=== PATIENT | male | born 1960 | race Caucasian/White ===

== ENCOUNTER 2020-08-19 10:49 | Emergency (ER) | payer OTHER ==
[~2020-08-19] VITALS: Ht 172.7 cm; Wt 108.9 kg
[2020-08-19] MEDS: cloNIDine HCL 0.1 MG TAB PO ONE (11:00)
[2020-08-19 13:28] LABS: Urine Bacteria NONE SEEN /hpf (None Seen); Urine Blood 3+ /uL (Negative); Urine Budding Yeast FEW /hpf (None Seen); Urine Mucus FEW (None Seen); Urine Specific Gravity 1.021 (1.001-1.035); Urine WBC 117 /hpf (0 - 3)
[2020-08-19] MEDS: cefTRIAXone SOD 1,000 MG VL IM ONE (14:36)
[2020-08-19 14:48] VITALS: BP 181/115
== END 2020-08-19 15:28 | disposition home or self-care (01) ==
LOC: ER 10:49
DX: N39.0 Urinary tract infection, site not specified (principal); N21.0 Calculus in bladder; I10 Essential (primary) hypertension; E66.01 Morbid (severe) obesity due to excess calories; Z68.36 Body mass index [BMI] 36.0-36.9, adult
CPT/HCPCS: 74176; 81001; 96372; 99284; J0696

== ENCOUNTER 2021-01-20 18:44 | Emergency (ER) | payer MEDICAID, OTHER ==
[~2021-01-20] VITALS: Ht 172.7 cm; Wt 99.8 kg
[2021-01-20 18:55] VITALS: BP 101/68
== END 2021-01-21 00:52 | disposition left against medical advice (07) ==
LOC: ER 18:44
DX: R30.9 Painful micturition, unspecified (principal); Z53.21 Procedure and treatment not carried out due to patient leaving prior to being seen by health care provider